=== PATIENT | male | born 1955 | race Caucasian/White ===

== ENCOUNTER → 2017-03-26 | Outpatient (REF) ==
[~2017-03-26] MED LIST: ASPIRIN 81M81 MG/TA2 PO; COREG 25MG25 MG/TAB PO; IMDUR 30MG30 MG/TAB PO; INCRUSE EL62.5 MCG/A IH; LIPITOR 80MG80 MG PO; MEDROL 4MG DOSPA4 MG PO; MUCINEX DM 30 M1 TE1 PO; NORCO 325 MG-7.1 TAB PO; PLAVIX 75MG TAB75 MG PO; PREDNISONE20 MG PO; PROAIR HFA0.09 MG/AC IH; PROTONIX 40MG T40 MG PO; RT ADVAIR HFA 1112 G IH; SYNTHROID0.175 MG PO; TRICOR145 MG PO
== END ==
LOC: WSOH 12:46
DX: Z00.00 Encounter for general adult medical examination without abnormal findings (principal)
CPT/HCPCS: G0463

== ENCOUNTER 2017-06-01 13:45 | Observation (INO) | payer BC ==
[~2017-06-01] VITALS: Ht 182.9 cm; Wt 86.8 kg
[~2017-06-01 13:45] MED LIST changes: -IMDUR 30MG30 MG/TAB PO; -INCRUSE EL62.5 MCG/A IH; -LIPITOR 80MG80 MG PO; -MEDROL 4MG DOSPA4 MG PO; -MUCINEX DM 30 M1 TE1 PO; -PLAVIX 75MG TAB75 MG PO; -PREDNISONE20 MG PO; -PROAIR HFA0.09 MG/AC IH; -PROTONIX 40MG T40 MG PO; -RT ADVAIR HFA 1112 G IH; -TRICOR145 MG PO
[2017-06-01] MEDS ORDERED: TRICOR145 MG PO (14:15)
[2017-06-01 14:56] LABS: BASO % 0.2 % (0.0-2.0); EOS # 0.3 (0.0-0.7); EOS % 1.9 % (0-4.0); GRAN # 10.1 (1.4-6.5); GRAN % 76.7 % (42.2-75.2); HEMATOCRIT 43.3 % (42.0-52.0); LYMPH # 1.8 (1.2-3.4); LYMPH % 13.8 % (20.0-51.0); MEAN CELL VOLUME 92 fl (80.0-100.0); MEAN CORPUSCULAR HEMOGLOBIN 32 pg (27.0-31.0); MEAN CORPUSCULAR HGB CONC 35 g/dl (33.0-37.0); MEAN PLATELET VOLUME 9.5 fl (7.4-10.4); MONO # 0.9 (0.1-0.6); MONO % 6.9 % (1.7-9.3); PLATELET COUNT 213 K/mm3 (130-400); RED BLOOD COUNT 4.72 M/mm3 (4.20-5.60); REDCELL DISTRIBUTION WIDTH-CV 11.9 % (11.5-14.5); WHITE BLOOD COUNT 13.2 K/mm3 (4.8-10.8)
[2017-06-01 15:05] LABS: ADJUSTED CALCIUM 9.2 mg/dL (8.4-10.2); ALANINE AMINOTRANSFERASE 44 U/L (21-72); ALBUMIN 4.5 gm/dL (3.5-5.0); ALKALINE PHOSPHATASE 66 U/L (50-136); ANION GAP 12 mmol/L (7-16); BLOOD UREA NITROGEN 17 mg/dL (9-20); CALCIUM 9.6 mg/dL (8.4-10.2); CARBON DIOXIDE 25 mmol/L (22-30); CHLORIDE 102 mmol/L (98-107); CREATININE, serum 1.01 mg/dL (0.66-1.25); GLUCOSE 91 mg/dL (74-106); LIPASE 60 U/L (23-300); POTASSIUM 4.1 mmol/L (3.4-5.0); SODIUM 139 mmol/L (137-145); TOTAL PROTEIN 7.5 gm/dL (6.4-8.2)
[2017-06-01 15:17] LABS: PROTHROMBIN TIME 11.2 SECONDS (9.7-12.8)
[2017-06-01 15:20] LABS: PARTIAL THROMBOPLASTIN TIME 26.8 SECONDS (26.0-37.0)
[2017-06-01 15:26] LABS: TROPONIN-I < 0.012 ng/mL (0.000-0.034)
[2017-06-01 16:11] LABS: PH 6 (5-8); SQUAMOUS EPITHELIAL None Seen /hpf; URINE APPEARANCE Clear; URINE BACTERIA None Seen /hpf; URINE BILIRUBIN Negative (NEGATIVE); URINE BLOOD Negative (NEGATIVE); URINE COLOR Yellow; URINE GLUCOSE Negative (NEGATIVE); URINE KETONE Negative (NEGATIVE); URINE RBC 0-2 /hpf; URINE UROBILINOGEN Negative (NEGATIVE); URINE WBC 0-2 /hpf
[2017-06-01 17:36] VITALS: BP 131/83; PULSE 104; TEMP 97
[2017-06-01 17:39] VITALS: BP 131/83; PULSE 104; TEMP 97
[2017-06-01 18:31] LABS: CHOLESTEROL 177 mg/dL (120-200); HDL CHOLESTEROL 42 mg/dL; LDL CHOLESTEROL 105 mg/dL; TRIGLYCERIDE 151 mg/dL
[2017-06-01 19:14] VITALS: BP 138/72; PULSE 108; TEMP 98.3
[2017-06-01 22:35] VITALS: BP 117/69; PULSE 100; TEMP 98.5
[2017-06-02 03:40] VITALS: BP 106/74; PULSE 91; TEMP 98.8
[2017-06-02 08:40] VITALS: BP 132/78; PULSE 68; TEMP 98.2
[2017-06-02 11:25] VITALS: BP 125/75; PULSE 89; TEMP 98.3
[2017-06-02 15:15] VITALS: BP 113/73; PULSE 87; TEMP 97.9
[2017-06-02 19:40] VITALS: BP 133/87; PULSE 90; TEMP 98.4
[2017-06-03 06:10] VITALS: BP 110/70; PULSE 73; TEMP 98.2
[2017-06-03] MEDS ORDERED: INCRUSE EL62.5 MCG/A IH (07:33)
[2017-06-03] MEDS ORDERED: PLAVIX 75MG TAB75 MG PO (07:34)
[2017-06-03] MEDS ORDERED: LIPITOR 80MG80 MG PO (07:34)
[2017-06-03] MEDS ORDERED: IMDUR 30MG30 MG/TAB PO (07:34)
[2017-06-03] MEDS ORDERED: RT ADVAIR HFA 1112 G IH (07:35)
[2017-06-03] MEDS ORDERED: PROTONIX 40MG T40 MG PO (07:35)
[2017-06-03] MEDS ORDERED: PREDNISONE20 MG PO (07:37)
[2017-06-03] MEDS ORDERED: PROAIR HFA0.09 MG/AC IH (08:55)
[2017-06-03] MEDS ORDERED: MEDROL 4MG DOSPA4 MG PO (08:59)
[2017-06-03] MEDS ORDERED: MUCINEX DM 30 M1 TE1 PO (09:00)
[2017-06-03 09:01] VITALS: BP 118/67; PULSE 78; TEMP 98.5
== END 2017-06-03 10:46 | disposition home or self-care (01) ==
LOC: COL.ER 13:45 → MEDICAL 15:54
PROVIDERS: Emergency Medicine
DX: R07.9 Chest pain, unspecified (principal); I25.10 Atherosclerotic heart disease of native coronary artery without angina pectoris; R53.81 Other malaise; B34.9 Viral infection, unspecified; J44.1 Chronic obstructive pulmonary disease with (acute) exacerbation; G47.33 Obstructive sleep apnea (adult) (pediatric); I10 Essential (primary) hypertension; E78.5 Hyperlipidemia, unspecified; E03.9 Hypothyroidism, unspecified; Z95.5 Presence of coronary angioplasty implant and graft; Z87.891 Personal history of nicotine dependence
CPT/HCPCS: G0378; J0456; J1650; J7030; J7050; J7512

== ENCOUNTER 2018-06-03 09:29 | Emergency (ER) | payer BC ==
[~2018-06-03] VITALS: Ht 180.3 cm; Wt 96.8 kg
[~2018-06-03 09:29] MED LIST changes: +IMDUR 30MG30 MG/TAB PO; +INCRUSE EL62.5 MCG/A IH; +LIPITOR 80MG80 MG PO; +MEDROL 4MG DOSPA4 MG PO; +MUCINEX DM 30 M1 TE1 PO; +PLAVIX 75MG TAB75 MG PO; +PREDNISONE20 MG PO; +PROAIR HFA0.09 MG/AC IH; +PROTONIX 40MG T40 MG PO; +RT ADVAIR HFA 1112 G IH; +TRICOR145 MG PO
[2018-06-03 09:32] VITALS: TEMP 98.3
[2018-06-03 10:07] LABS: COLLECTION METHOD CLEAN CATCH
[2018-06-03 10:13] LABS: MUCOUS Present /lpf; PH 5 (5-8); SQUAMOUS EPITHELIAL 0-2 /hpf; URINE APPEARANCE Clear; URINE BACTERIA None Seen /hpf; URINE BILIRUBIN Negative (NEGATIVE); URINE BLOOD Negative (NEGATIVE); URINE COLOR Yellow; URINE GLUCOSE Negative (NEGATIVE); URINE KETONE Negative (NEGATIVE); URINE LEUKOCYTE ESTERASE Negative (NEGATIVE); URINE NITRATE Negative (NEGATIVE); URINE PROTEIN(semi-quant) Negative (NEGATIVE); URINE RBC 0-2 /hpf
[2018-06-03 10:14] LABS: BASO % 0.1 % (0.0-2.0); EOS # 0.2 (0.0-0.7); EOS % 2.2 % (0-4.0); GRAN % 54.7 % (42.2-75.2); HEMATOCRIT 41.3 % (42.0-52.0); HEMOGLOBIN 14.2 g/dl (13.5-18.0); LYMPH # 2.4 (1.2-3.4); LYMPH % 32.2 % (20.0-51.0); MEAN CELL VOLUME 92 fl (80.0-100.0); MEAN CORPUSCULAR HEMOGLOBIN 32 pg (27.0-31.0); MEAN CORPUSCULAR HGB CONC 34 g/dl (33.0-37.0); MEAN PLATELET VOLUME 9.7 fl (7.4-10.4); MONO # 0.7 (0.1-0.6); MONO % 9.8 % (1.7-9.3); PLATELET COUNT 210 K/mm3 (130-400); RED BLOOD COUNT 4.49 M/mm3 (4.20-5.60); REDCELL DISTRIBUTION WIDTH-CV 11.9 % (11.5-14.5)
[2018-06-03 10:24] LABS: BILIRUBIN,TOTAL 0.6 mg/dL (0.0-1.0); C-REACTIVE PROTEIN 0.8 mg/dL (0.0-0.9); CALCIUM 9.2 mg/dL (8.4-10.2); CREATININE, serum 1.02 mg/dL (0.66-1.25); POTASSIUM 3.9 mmol/L (3.4-5.0); TOTAL PROTEIN 6.9 gm/dL (6.4-8.2)
[2018-06-03] MEDS ORDERED: ZOFRAN ODT4 MG PO (13:27)
[2018-06-03] MEDS ORDERED: NORCO 325 MG-51 TAB PO (13:27)
[2018-06-03 13:57] VITALS: BP 124/89; PULSE 69
== END 2018-06-03 14:07 | disposition home or self-care (01) ==
LOC: COL.ER 09:29
PROVIDERS: Emergency Medicine
DX: K63.89 Other specified diseases of intestine (principal); I25.10 Atherosclerotic heart disease of native coronary artery without angina pectoris; Z95.5 Presence of coronary angioplasty implant and graft; Z90.49 Acquired absence of other specified parts of digestive tract; Z79.82 Long term (current) use of aspirin
CPT/HCPCS: J1170; J2250; J2405; J7030; Q9967

== ENCOUNTER → 2018-06-16 | Outpatient (CLI) | payer BC ==
[~2018-06-16] MED LIST changes: +NORCO 325 MG-51 TAB PO; +ZOFRAN ODT4 MG PO
== END ==
LOC: COL.RAD 09:55
DX: R16.0 Hepatomegaly, not elsewhere classified (principal); Z90.49 Acquired absence of other specified parts of digestive tract; Z90.89 Acquired absence of other organs
CPT/HCPCS: Q9967

== ENCOUNTER 2019-09-24 21:52 | Inpatient (IN) | payer BC ==
[~2019-09-24] VITALS: Ht 180.3 cm; Wt 97.1 kg
[2019-09-24 22:28] LABS: BASO % 0.3 % (0.0-2.0); EOS # 0.2 (0.0-0.7); EOS % 2.4 % (0-4.0); GRAN # 4.4 (1.4-6.5); GRAN % 56.2 % (42.2-75.2); HEMATOCRIT 40.8 % (42.0-52.0); HEMOGLOBIN 13.7 g/dl (13.5-18.0); LYMPH # 2.2 (1.2-3.4); LYMPH % 28.4 % (20.0-51.0); MEAN CELL VOLUME 95 fl (80.0-100.0); MEAN CORPUSCULAR HEMOGLOBIN 32 pg (27.0-31.0); MEAN CORPUSCULAR HGB CONC 34 g/dl (33.0-37.0); MEAN PLATELET VOLUME 9.9 fl (7.4-10.4); MONO # 0.9 (0.1-0.6); MONO % 11.7 % (1.7-9.3); PLATELET COUNT 228 K/mm3 (130-400); RED BLOOD COUNT 4.29 M/mm3 (4.20-5.60); REDCELL DISTRIBUTION WIDTH-CV 12.4 % (11.5-14.5)
[2019-09-24 22:32] LABS: ALANINE AMINOTRANSFERASE 41 U/L (21-72); ALBUMIN 4.2 gm/dL (3.5-5.0); ALKALINE PHOSPHATASE 75 U/L (50-136); ANION GAP 13 mmol/L (7-16); AST,SGOT 36 U/L (15-37); BILIRUBIN,TOTAL 0.7 mg/dL (0.0-1.0); BLOOD UREA NITROGEN 19 mg/dL (9-20); CALCIUM 9.4 mg/dL (8.4-10.2); CARBON DIOXIDE 23 mmol/L (22-30); CHLORIDE 108 mmol/L (98-107); CREATINE KINASE 166 U/L (55-170); CREATININE, serum 1.19 (0.66-1.25); GLUCOSE 126 mg/dL (74-106); LIPASE 117 U/L (23-300); POTASSIUM 3.8 mmol/L (3.4-5.0); PROTHROMBIN TIME 11.2 SECONDS (9.7-12.8); SODIUM 144 mmol/L (137-145); TOTAL PROTEIN 7.4 gm/dL (6.4-8.2)
[2019-09-24 22:45] LABS: TROPONIN-I < 0.012 ng/mL (0.000-0.035)
[2019-09-25] VITALS (9 sets, daily range): BP systolic 107–124; BP diastolic 70–82; PULSE 70–110; TEMP 97.3–98.9
[2019-09-25] MEDS ORDERED: LEVOXYL0.137 MG PO (04:59)
[2019-09-25 06:55] LABS: BASO % 0.2 % (0.0-2.0); EOS % 0.3 % (0-4.0); GRAN # 4.5 (1.4-6.5); GRAN % 77.9 % (42.2-75.2); HEMOGLOBIN 13.5 g/dl (13.5-18.0); LYMPH % 18.1 % (20.0-51.0); MEAN CELL VOLUME 96 fl (80.0-100.0); MEAN CORPUSCULAR HEMOGLOBIN 32 pg (27.0-31.0); MEAN CORPUSCULAR HGB CONC 33 g/dl (33.0-37.0); MEAN PLATELET VOLUME 9.9 fl (7.4-10.4); MONO # 0.1 (0.1-0.6); MONO % 2.3 % (1.7-9.3); PLATELET COUNT 233 K/mm3 (130-400); RED BLOOD COUNT 4.28 M/mm3 (4.20-5.60); REDCELL DISTRIBUTION WIDTH-CV 12.3 % (11.5-14.5)
[2019-09-25 07:04] LABS: ALANINE AMINOTRANSFERASE 47 U/L (21-72); ALBUMIN 4.4 gm/dL (3.5-5.0); ALKALINE PHOSPHATASE 71 U/L (50-136); ANION GAP 13 mmol/L (7-16); AST,SGOT 36 U/L (15-37); BILIRUBIN,TOTAL 0.7 mg/dL (0.0-1.0); BLOOD UREA NITROGEN 18 mg/dL (9-20); CALCIUM 9.6 mg/dL (8.4-10.2); CARBON DIOXIDE 23 mmol/L (22-30); CHLORIDE 106 mmol/L (98-107); GLUCOSE 154 mg/dL (74-106); SODIUM 142 mmol/L (137-145); TOTAL PROTEIN 7.5 gm/dL (6.4-8.2)
[2019-09-25 07:15] LABS: TROPONIN-I 6 HR POST INITIAL < 0.012 ng/mL (0.000-0.034)
--- NOTE | 2019-09-25 10:02 | NUR ---
PATIENT ASSESSMENT COMPLETED. HE REPORTS A SMALL PRODUCTIVE COUGH. O2 AT 4.5 L VIA NASAL CANNULA. HE DENIES OTHER NEEDS AT THIS TIME
--- NOTE | 2019-09-25 10:29 | NUR ---
PATIENT COMPLAINS OF HEAVINESS IN THE MIDDLE OF HIS CHEST AND SLIGHTLY SHORTNESS OF BREATH. AT BEDSIDE. AFTER A FEW MINUTES THE PAIN IS DECREASING STILL HAVING SOME SOB. WILL NOTIFY DOCTOR
--- NOTE | 2019-09-25 10:30 | NUR ---
notified Dr. Blackman of patient symptoms. I have called Dr. Carpio and he says that the hospitalist can follow up this patient. Dr. Blackman will go in to see the patient.
--- NOTE | 2019-09-25 16:58 | NUR ---
PATIENT RESTING IN THE BED. HE DENIES ANY PAIN OR NEEDS AT THIS TIME.
--- NOTE | 2019-09-25 19:42 | NUR ---
Pt resting with HOB elevated. Eating a sandwich. at bedside. No distress noted. Pt just finished taking a shower. IV site intact. Respirations even and unlabored. Lungs clear. Spo2 92-93% on O2@4L via NC. Pt denies SOB. Abdomen soft, nontender. BS+. No edema noted. Pt denies needs at this time. Will continue to monitor.
--- NOTE | 2019-09-25 20:48 | NUR ---
Pt expressing concerns that he was given Tricor this AM, as he states he "is not supposed to take that with other medications". Pt states he takes Lipitor in AM and Tricor at HS.
[2019-09-26] VITALS (10 sets, daily range): BP systolic 106–130; BP diastolic 60–93; PULSE 85–96; TEMP 97.5–98.2
--- NOTE | 2019-09-26 04:26 | NUR ---
Pt c/o headache this AM. Blood pressure and O2 sat WNL. PRN Tylenol given.
[2019-09-26 06:25] LABS: BASO % 0.1 % (0.0-2.0); GRAN # 11.1 (1.4-6.5); GRAN % 85.1 % (42.2-75.2); HEMATOCRIT 39.7 % (42.0-52.0); HEMOGLOBIN 13.1 g/dl (13.5-18.0); LYMPH # 1.2 (1.2-3.4); LYMPH % 8.8 % (20.0-51.0); MEAN CELL VOLUME 96 fl (80.0-100.0); MEAN CORPUSCULAR HEMOGLOBIN 32 pg (27.0-31.0); MEAN CORPUSCULAR HGB CONC 33 g/dl (33.0-37.0); MEAN PLATELET VOLUME 10.1 fl (7.4-10.4); MONO # 0.6 (0.1-0.6); MONO % 4.8 % (1.7-9.3); PLATELET COUNT 263 K/mm3 (130-400); RED BLOOD COUNT 4.13 M/mm3 (4.20-5.60); REDCELL DISTRIBUTION WIDTH-CV 12.3 % (11.5-14.5)
[2019-09-26 06:39] LABS: CALCIUM 9.6 mg/dL (8.4-10.2); CREATININE, serum 1.08 (0.66-1.25); POTASSIUM 4.1 mmol/L (3.4-5.0)
--- NOTE | 2019-09-26 08:22 | NUR ---
Pt assessment completed and charted. Pt sitting in bed, just received breathing tx. Pt A&O, independent in room. Pt denies SOB, currently on 4L NC. LH INT IV flushes w/ no difficulties. Heart RRR, lung sounds clear, bowel sounds present X4, pulses strong bilaterally. Morning medications administered per JAN, w/ sips. Pt NPO for heart cath procedure scheduled at noon 09/26. Pt denies chest pain, dizziness, N/V, numbness or tingling. No other concerns voiced at this time. Call light within reach. POC discussed w/ patient who verbalized understanding.
--- NOTE | 2019-09-26 11:23 | NUR ---
SEE MEREFABIENNE FOR ALL MEDICATION ADMINISTRATION TIMES AND INTRA/POST SEDATION ASSESSMENTS
[2019-09-26 11:56] LABS: CHOLESTEROL RISK RATIO 3.8
--- NOTE | 2019-09-26 12:31 | NUR ---
Pt back to room 310 from heart cath procedure. Pt A&O, rt radial site w/ compression band, 12 mls of air inflated. Pt on bedrest, denies pain at this time. No active bleeding, good cap refill, VSS. Pt on 4L NC. No other concerns noted.
--- NOTE | 2019-09-26 13:27 | NUR ---
JOANNE met with the patient and the patient's , Susie (ph#[phone]), to discuss discharge plan. The patient lives in [place] with his . He reports independence with ADLs and does not have any DME. The patient's PCP is Dr. Hussein Carpio and he receives his medications on [place] or [facility]. He reports no difficulties obtaining his meds. The patient does not have advanced directives completed, but he was interested in obtaining a form for DPOA-HC. JOANNE provided. The patient plans to return home with his upon discharge. The patient is currently requiring oxygen. SW to continue to monitor.
--- NOTE | 2019-09-26 14:10 | NUR ---
Pt down for chest CT and back up to room. No complications. Denies pain, VSS. Rt radial band on, no complications, no active bleeding, 12 mls air still present. Pt tolerating food well. No concerns voiced.
--- NOTE | 2019-09-26 15:23 | NUR ---
Pt laying in bed. Denies pain, 5 ml air released from band on rt radial site. No bleeding noted.
--- NOTE | 2019-09-26 18:33 | NUR ---
All remaining air removed from right radial band, no bleeding noted, bandaid placed over site. Good cap refill, pulses strong. Pt denies pain, VSS. No concerns voiced.
--- NOTE | 2019-09-26 20:30 | NUR ---
Initial shift assessment done- VSS, o2 at 4L/nc, denies SOB, R/radial site dry and intact, no hematoma, Wants to take a shower tonight,no other requests
[2019-09-27 03:51] VITALS: BP 125/76; PULSE 97
[2019-09-27 06:18] LABS: HEMATOCRIT 39.7 % (42.0-52.0); HEMOGLOBIN 13.1 g/dl (13.5-18.0); MEAN CELL VOLUME 96 fl (80.0-100.0); MEAN CORPUSCULAR HEMOGLOBIN 32 pg (27.0-31.0); MEAN CORPUSCULAR HGB CONC 33 g/dl (33.0-37.0); MEAN PLATELET VOLUME 10.2 fl (7.4-10.4); PLATELET COUNT 261 K/mm3 (130-400); RED BLOOD COUNT 4.14 M/mm3 (4.20-5.60); REDCELL DISTRIBUTION WIDTH-CV 12.3 % (11.5-14.5)
--- NOTE | 2019-09-27 06:25 | NUR ---
Quiet night- O2 down to 2L/nc- sats 92%, denies SOB, slept fair. Right radial sight dry and intact. Tele on.
[2019-09-27 06:37] LABS: CALCIUM 9.2 mg/dL (8.4-10.2)
[2019-09-27 07:23] LABS: BAND 7 % (0-10); LYMPHOCYTE 9 % (20.0-51.0); NEUTROPHILS 82 % (42.0-75.2); PLATELET ESTIMATE NORMAL (NORMAL); TOXIC GRANULATION PRESENT
--- NOTE | 2019-09-27 07:33 | NUR ---
PATIENT 87% ON 3LPM. PLACED BACK ON 3LPM.
[2019-09-27 08:02] VITALS: BP 128/77; PULSE 79; TEMP 98.1
--- NOTE | 2019-09-27 08:35 | NUR ---
Pt assessment completed and charted. Pt sitting in bed, using IS. Pt A&O, independent in room. Denies pain, chest pain, dizziness, N/V/D. Denies SOB, states he has an increase in WOB if he gets up and moves around a lot. Stated he "took a shower last night w/o O2 and did ok". Pt currently on 3L NC at this time. LH INT IV flushes w/ no complications. Morning medications administered per JAN. No other concerns voiced at this time.
[2019-09-27 11:37] VITALS: BP 110/77; PULSE 81; TEMP 98.1
--- NOTE | 2019-09-27 12:16 | NUR ---
First visit from the import clerk. No needs right now.
--- NOTE | 2019-09-27 14:13 | NUR ---
patient requires 2LPM while ambulating to eget spo2 >88%.
--- NOTE | 2019-09-27 15:43 | NUR ---
[employer] Supervisor met with the patient about need for oxygen upon discharge. SW presented patient choice form and patient chose [facility]. JOANNE placed original in chart and provided a copy to the patient. SW faxed referral, including exercise oximetry to [facility]. JOANNE spoke with Bere at [facility] who advised patient's insurance only covers 70% of oxygen rental so patient would owe about $150 out of pocket each month until his out of pocket limit is met. JOANNE met with patient and relayed this information. Patient understands and would like to move forward with oxygen rental. [facility] to deliver this afternoon. JOANNE relayed this information to patient's RN, Essence. No additional concerns at this time.
[2019-09-27 15:53] VITALS: BP 130/81; PULSE 78; TEMP 97.3
--- NOTE | 2019-09-27 17:27 | NUR ---
Pt discharge instructions discussed and reviewed w/ patient who verbalized understanding, all questions answered. No other concerns voiced at this time. RAC INT IV dc'd with catheter tip intact, no complications. Pt assisted out via WC by vannesa Gregory.
--- NOTE | 2019-09-27 18:58 | NUR ---
Pt had uneventful day. Exercise Oximetry completed, O2 delivered for possible discharge on 09/28. Pt reported congestion during shift change/report. Report given to SYED Brown.
--- NOTE | 2019-09-27 20:45 | NUR ---
Resting in bed. Assessment complete. Right upper lobe diminished otherwise clear. Shortness of breath with ambulation. Otherwise no reports of shortness of breath. Heart sounds normal. Bowels active x4. Pulses strong throughout. No edema noted. Left hand INT without complication. Denies pain. Denies needs at this time. Call light in reach.
[2019-09-27 21:43] VITALS: BP 128/78; PULSE 85; TEMP 97.8
[2019-09-27 23:48] VITALS: BP 125/66; PULSE 74; TEMP 98
--- NOTE | 2019-09-28 04:00 | NUR ---
Resting in bed. Denies needs. Call light in reach.
[2019-09-28 04:20] VITALS: BP 135/87; PULSE 70; TEMP 98
--- NOTE | 2019-09-28 06:21 | NUR ---
Patient had uneventful night. Remains on 2 liters via nasal cannula. Denies needs this AM. Call light in reach.
[2019-09-28 06:34] LABS: HEMATOCRIT 40.8 % (42.0-52.0); HEMOGLOBIN 13.6 g/dl (13.5-18.0); MEAN CELL VOLUME 95 fl (80.0-100.0); MEAN CORPUSCULAR HEMOGLOBIN 32 pg (27.0-31.0); MEAN CORPUSCULAR HGB CONC 33 g/dl (33.0-37.0); MEAN PLATELET VOLUME 9.9 fl (7.4-10.4); PLATELET COUNT 241 K/mm3 (130-400); RED BLOOD COUNT 4.28 M/mm3 (4.20-5.60); REDCELL DISTRIBUTION WIDTH-CV 12.2 % (11.5-14.5)
[2019-09-28 07:07] LABS: CALCIUM 9.2 mg/dL (8.4-10.2); CREATININE, serum 0.99 (0.66-1.25); POTASSIUM 4.3 mmol/L (3.4-5.0)
--- NOTE | 2019-09-28 07:23 | NUR ---
Report given to SYED Lin
[2019-09-28 07:33] VITALS: BP 135/79; PULSE 78; TEMP 98.1
[2019-09-28 07:47] LABS: BAND 1 % (0-10); LYMPHOCYTE 11 % (20.0-51.0); MYELOCYTE 1 % (0-0); NEUTROPHILS 84 % (42.0-75.2); PLATELET ESTIMATE NORMAL (NORMAL)
--- NOTE | 2019-09-28 08:30 | NUR ---
Assessment complete. Pt sitting up in bed, A&O x 4. Breath sounds CTAB. BS active x 4. Pt denies pain at this time. Saline lock IV to left hand without s/s of complications. No further needs reported. Call light in reach.
--- NOTE | 2019-09-28 08:56 | NUR ---
today patient did not require oxygen during ambulation.
[2019-09-28] MEDS ORDERED: INCRUSE EL62.5 MCG/A IH (08:59)
[2019-09-28] MEDS ORDERED: PROAIR HFA0.09 MG/AC IH (09:03)
[2019-09-28] MEDS ORDERED: PREDNISONE10 MG PO (09:03)
--- NOTE | 2019-09-28 09:39 | NUR ---
SW attended clinical rounds. An exercise oximetry was done today, 09/28, and no oxygen was needed with ambulation or at rest. SW contacted and updated Oswald at [facility]. [facility] plans to come and picked edge sewing machine operator the portable oxygen tank they had brought for the patient yesterday. SW informed the patient. The patient also completed a DPOA-HC. JOANNE and waiter/waitress cabin class, Maria Fernanda, witnessed the patient's signature. The patient was provided with the original and some copies. A copy was placed in the patient's chart. The patient designated his , Yoli Alejandro, and his children Tadeo and Mookie Quinn. The patient is to discharge back home with his today, 09/28. No additional needs at this time.
[2019-09-28 11:28] VITALS: BP 130/59; PULSE 73; TEMP 97.9
--- NOTE | 2019-09-28 11:35 | NUR ---
Discharge instructions reviewed with pt regarding new medications and follow-up appointments. Pt verbalizes understanding, ambulates out of facility escorted by DIRECTOR [employer] SCIENCES and pt's .
== END 2019-09-28 11:30 | disposition home or self-care (01) | DRG 190 ==
LOC: COL.ER 21:52 → MEDICAL 23:26
PROVIDERS: Emergency Medicine; Hospitalist; Nurse Practitioner Family; Physician Assistant; ADMIT Student in an Organized Health Care Education/Training Program
PROC: 4A023N7 Measurement of Cardiac Sampling and Pressure, Left Heart, Percutaneous Approach (ICD-10-PCS; principal; 2019-09-26)
PROC: B2111ZZ Fluoroscopy of Multiple Coronary Arteries using Low Osmolar Contrast (ICD-10-PCS; 2019-09-26)
DX: J44.1 Chronic obstructive pulmonary disease with (acute) exacerbation (principal); J96.01 Acute respiratory failure with hypoxia; I10 Essential (primary) hypertension; E78.5 Hyperlipidemia, unspecified; I25.10 Atherosclerotic heart disease of native coronary artery without angina pectoris; G47.33 Obstructive sleep apnea (adult) (pediatric); R07.89 Other chest pain; E03.9 Hypothyroidism, unspecified; Z79.82 Long term (current) use of aspirin; Z87.891 Personal history of nicotine dependence; Z95.5 Presence of coronary angioplasty implant and graft
CPT/HCPCS: 99231-AI; 99232-AI; 99239; J1644; J1650; J2250; J2920; J2930; J3010; J7512

== ENCOUNTER → 2019-12-13 | Outpatient (CLI) | payer BC ==
[~2019-12-13] MED LIST changes: +LEVOXYL0.137 MG PO; +PREDNISONE10 MG PO
== END ==
LOC: COL.VAS 10:43
DX: I51.7 Cardiomegaly (principal)

== ENCOUNTER → 2020-09-26 | Outpatient (CLI) | payer BC | LOC: COL.VAS 12:24 | DX: R06.02 Shortness of breath (principal) ==

== ENCOUNTER → 2021-11-27 | Outpatient (CLI) | payer BC, OTHER ==
[2021-11-27 11:22] VITALS: BP 127/89; PULSE 82; TEMP 98.4
[2021-11-27 13:08] VITALS: BP 124/85; PULSE 92
[2021-11-27 13:15] VITALS: BP 106/75; PULSE 82
[2021-11-27 13:30] VITALS: BP 107/72; PULSE 77
[2021-11-27 13:45] VITALS: BP 111/72; PULSE 84
--- NOTE | 2021-11-27 13:45 | NUR ---
PT SITTING ON SIDE OF BED DRINKING SPRITE.TALKING WITH . TOLERATING THAT WELL.
--- NOTE | 2021-11-27 13:47 | NUR ---
PT TOLERATING ORAL FLUIDS AT THIS TIME.
[2021-11-27 14:00] VITALS: BP 109/87; PULSE 80
--- NOTE | 2021-11-27 14:25 | NUR ---
INT DC'D. PT TRANSPORTED IN WHEELCHAIR TO CAR. FOAM TANK LAMINATOR.
== END ==
LOC: COL.RAD 10:53
DX: R41.3 Other amnesia (principal)
CPT/HCPCS: J2250; J2704; J3010

== ENCOUNTER 2022-02-28 07:25 | Day surgery (SDC) | payer BC, OTHER ==
[2022-02-28] VITALS (12 sets, daily range): BP systolic 99–123; BP diastolic 64–82; PULSE 50–89; TEMP 97.6–98.1
[~2022-02-28] VITALS: Ht 180.3 cm; Wt 97.0 kg
[~2022-02-28 07:25] MED LIST changes: +COZAAR 25MG25 MG/TAB PO; +PROTONIX20 MG PO; +RANEXA 500MG T500 MG PO
[2022-02-28 08:08] LABS: HEMATOCRIT 44.8 % (42.0-52.0); HEMOGLOBIN 15.5 g/dl (13.5-18.0); MEAN CELL VOLUME 90 fl (80.0-100.0); MEAN CORPUSCULAR HEMOGLOBIN 31 pg (27-31); MEAN CORPUSCULAR HGB CONC 35 g/dl (33.0-37.0); MEAN PLATELET VOLUME 9.5 fl (7.4-10.4); PLATELET COUNT 247 K/mm3 (130-400); RED BLOOD COUNT 4.98 M/mm3 (4.20-5.60)
[2022-02-28 08:17] LABS: CALCIUM 8.9 mg/dL (8.4-10.2); CREATININE, serum 1.03 mg/dL (0.72-1.25); POTASSIUM 3.9 mmol/L (3.5-4.5)
[2022-02-28 08:18] LABS: INR 1.2 (0.8-3.0); PROTHROMBIN TIME 12.8 SECONDS (9.7-12.8)
[2022-02-28 08:20] LABS: PARTIAL THROMBOPLASTIN TIME 27.8 SECONDS (26.0-37.0)
[2022-02-28] MEDS ORDERED: LIPITOR 80MG80 MG PO (08:47)
[2022-02-28] MEDS ORDERED: PROTONIX20 MG PO (08:49)
[2022-02-28] MEDS ORDERED: RT ADVAIR HFA 1112 G IH (08:49)
[2022-02-28] MEDS ORDERED: PROAIR HFA0.09 MG/AC IH (08:49)
[2022-02-28] MEDS ORDERED: VITAMIN D 50,1.25 MG PO (08:51)
--- NOTE | 2022-02-28 09:25 | NUR ---
Moderate sedation assessment completed after assessing patient in express. See merge for all vital signs, assessment, medication, and intervention times.
--- NOTE | 2022-02-28 11:30 | NUR ---
PT ARRIVED TO ROOM, POST OP FLUIDS INFUSING, POST OP VITALS ATTACHED, PT AWAKE, AOX4, SANDWICH BOX PROVIDED, ASSISTED PT IN ORDERING LUNCH, R RADIAL SITE ASSESSED, NO OOZING OR DRAINAGE PRESENT, NO OTHER NEEDS
--- NOTE | 2022-02-28 13:35 | NUR ---
2ML OF AIR REMOVED FROM BAND, NO BLEEDING FROM SITE, NO FIRMNESS BUT PAIN REPORTED PROXIMAL TO BAND.
--- NOTE | 2022-02-28 14:06 | NUR ---
2ML REMOVED FROM RADIAL BAND, TENDERNESS PROXIMAL TO SITE BUT NO FIRMNESS, SITE SOFT TO PALPATION. VITALS STABLE
--- NOTE | 2022-02-28 15:18 | NUR ---
PT BAND DEFLATED COMPLETELY. NO TENDERNESS OR FIRMNESS PROXIMAL TO TR BAND. TR BAND LEFT ON PT WITH WRIST GUARD IN PLACE. EDUCATED ON WRIST MOVEMENT RESTRICTIONS. NO OTHER NEEDS AT THIS TIME
--- NOTE | 2022-02-28 17:03 | NUR ---
TR BAND REMOVED, BANDAID COVERING R WRIST. DENIES PAIN, REPORTS USING 2L NC AT NIGHT AT HOME. NC PROVIDED TO PT. VITALS STABLE. NO OTHER NEEDS
[2022-03-01 00:08] VITALS: BP 99/61; PULSE 71; TEMP 97.9
[2022-03-01 03:43] VITALS: BP 122/70; PULSE 64; TEMP 97.9
[2022-03-01 06:22] LABS: BASO % 0.3 % (0.0-2.0); EOS # 0.1 K/mm3 (0.0-0.7); EOS % 2.1 % (0.0-4.0); GRAN # 4.2 K/mm3 (1.4-6.5); GRAN % 68.4 % (42.2-75.2); HEMATOCRIT 42.4 % (42.0-52.0); HEMOGLOBIN 14.3 g/dl (13.5-18.0); LYMPH # 1.1 K/mm3 (1.2-3.4); LYMPH % 18.2 % (20.0-51.0); MEAN CELL VOLUME 92 fl (80.0-100.0); MEAN CORPUSCULAR HEMOGLOBIN 31 pg (27-31); MEAN CORPUSCULAR HGB CONC 34 g/dl (33.0-37.0); MEAN PLATELET VOLUME 9.9 fl (7.4-10.4); MONO # 0.6 K/mm3 (0.1-0.6); MONO % 10.4 % (1.7-9.3); PLATELET COUNT 212 K/mm3 (130-400); RED BLOOD COUNT 4.61 M/mm3 (4.20-5.60); REDCELL DISTRIBUTION WIDTH-CV 13.1 % (11.5-14.5)
[2022-03-01 06:37] LABS: CALCIUM 8.8 mg/dL (8.4-10.2); CREATININE, serum 0.87 mg/dL (0.72-1.25); POTASSIUM 3.8 mmol/L (3.5-4.5)
[2022-03-01 07:19] VITALS: BP 131/80; PULSE 78; TEMP 97.5
--- NOTE | 2022-03-01 09:27 | NUR ---
Scheduled medication given. Shift assessment performed. Patient currently requiring 2L of O2 via nasal cannula, but denies any SOA at this time. Patient reports occurence of rash while taking plavix previously. Plavix held until doctor can review. Right radial site is soft and free from hematoma. Bandaide in place. Patient denies any pain, discomfort, SOA, or further needs at this time. Call light in reach. VSS. Patient A&O.
--- NOTE | 2022-03-01 10:57 | NUR ---
Judy contacted regarding previous reaction to plavix. Verbal order recieved for Lasha.
[2022-03-01] MEDS ORDERED: RANEXA 500MG T500 MG PO (12:32)
[2022-03-01] MEDS ORDERED: BRILINTA90 MG PO (12:32)
[2022-03-01] MEDS ORDERED: LOFIBRA160 MG PO (12:33)
--- NOTE | 2022-03-01 14:35 | NUR ---
Patient deemed fit for discharge. Discharge instructions/education given. IV DC'd, catheter intact, no signs of phlebitis. Fenofibrate order clarified. All questions answered. Patient denies any pain, discomfort, SOA, or further needs at this time. VSS. Patient A&O. Patient ambulated from building escorted by [facility] staff. Patient transporting self home.
--- NOTE | 2022-03-01 14:56 | NUR ---
JOANNE met with pt to complete intake. The pt lives at home with his , Deanna, . The pt is independent on all ADLS and still drives. The pt reports he uses 2L o2 at night. He reports he has DPOA-HC and gets his medications from [facility]. DC: home
== END 2022-03-01 13:40 | disposition home or self-care (01) ==
LOC: COL.CAR 07:25 → MEDICAL 11:23 → COL.CAR 12:00
PROVIDERS: Internal Medicine Cardiovascular Disease; Nurse Practitioner
DX: I20.9 Angina pectoris, unspecified (principal); I45.89 Other specified conduction disorders
CPT/HCPCS: OP; J1644; J7030; Q9967

== ENCOUNTER 2022-03-15 12:21 | Emergency (ER) | payer BC, OTHER ==
[~2022-03-15] VITALS: Ht 180.3 cm; Wt 93.2 kg
[~2022-03-15 12:21] MED LIST changes: +BRILINTA90 MG PO; +LOFIBRA160 MG PO; +VITAMIN D 50,1.25 MG PO
[2022-03-15 12:27] VITALS: TEMP 98
[2022-03-15 13:24] LABS: BASO % 0.3 % (0.0-2.0); EOS # 0.1 K/mm3 (0.0-0.7); EOS % 2.1 % (0.0-4.0); GRAN # 3.8 K/mm3 (1.4-6.5); GRAN % 56.9 % (42.2-75.2); HEMATOCRIT 42.2 % (42.0-52.0); HEMOGLOBIN 14.5 g/dl (13.5-18.0); LYMPH % 28.9 % (20.0-51.0); MEAN CELL VOLUME 91 fl (80.0-100.0); MEAN CORPUSCULAR HEMOGLOBIN 31 pg (27-31); MEAN CORPUSCULAR HGB CONC 34 g/dl (33.0-37.0); MEAN PLATELET VOLUME 9.5 fl (7.4-10.4); MONO # 0.8 K/mm3 (0.1-0.6); MONO % 11.4 % (1.7-9.3); PLATELET COUNT 231 K/mm3 (130-400); RED BLOOD COUNT 4.65 M/mm3 (4.20-5.60); REDCELL DISTRIBUTION WIDTH-CV 12.7 % (11.5-14.5)
[2022-03-15 13:43] LABS: ALBUMIN 3.9 gm/dL (3.4-4.8); BILIRUBIN,TOTAL 1.2 mg/dL (0.2-1.2); CREATININE, serum 1.26 mg/dL (0.72-1.25); POTASSIUM 4.2 mmol/L (3.5-4.5); TOTAL PROTEIN 6.9 gm/dL (6.2-8.1)
[2022-03-15 14:15] VITALS: BP 113/75; PULSE 67
== END 2022-03-15 14:15 | disposition home or self-care (01) ==
LOC: COL.ER 12:21
PROVIDERS: Physician Assistant
DX: S61.211A Laceration without foreign body of left index finger without damage to nail, initial encounter (principal); S37.009A Unspecified injury of unspecified kidney, initial encounter; I95.9 Hypotension, unspecified; I25.10 Atherosclerotic heart disease of native coronary artery without angina pectoris; I10 Essential (primary) hypertension; Z23 Encounter for immunization; Z88.8 Allergy status to other drugs, medicaments and biological substances; Z79.82 Long term (current) use of aspirin; Z79.02 Long term (current) use of antithrombotics/antiplatelets; Z79.899 Other long term (current) drug therapy; W31.1XXA Contact with metalworking machines, initial encounter
CPT/HCPCS: J7030

== ENCOUNTER → 2023-04-09 | Outpatient (CLI) | payer BC, MEDICARE, OTHER ==
[~2023-04-09] MED LIST changes: +VITAMIN B COMPL1 T16 PO
== END ==
LOC: COL.RAD 06:58
DX: K76.0 Fatty (change of) liver, not elsewhere classified (principal); K76.9 Liver disease, unspecified; R16.0 Hepatomegaly, not elsewhere classified

== ENCOUNTER 2023-08-07 10:16 | Outpatient (RCR) | payer BC, OTHER | END 2023-08-29 | disposition home or self-care (01) | LOC: WSPT | DX: K86.89 Other specified diseases of pancreas (principal); R16.0 Hepatomegaly, not elsewhere classified; D3A.8 Other benign neuroendocrine tumors; J18.9 Pneumonia, unspecified organism; Y95 Nosocomial condition; J96.21 Acute and chronic respiratory failure with hypoxia; D13.7 Benign neoplasm of endocrine pancreas; J13 Pneumonia due to Streptococcus pneumoniae; I25.10 Atherosclerotic heart disease of native coronary artery without angina pectoris; I10 Essential (primary) hypertension; J44.9 Chronic obstructive pulmonary disease, unspecified ==